=== PATIENT | female | born 1975 | race Caucasian/White ===

== ENCOUNTER 2017-06-23 22:50 | Emergency (ER) | payer SELFPAY ==
[~2017-06-23] VITALS: Ht 160 cm; Wt 96.8 kg
[2017-06-23 22:53] VITALS: TEMP 36.9; Ht 160 cm; Wt 96.8 kg
[2017-06-23] MEDS ORDERED: ALUMINUM/MAGNESIUM SUSP 30 ML UDC ONE (23:24)
[2017-06-23] MEDS ORDERED: LIDOCAINE HCL 2% VISC SOLN 20 ML UDC ONE (23:24)
[2017-06-23] MEDS ORDERED: LISI40TA PO (23:38)
[2017-06-23] MEDS ORDERED: ATOR-22 PO (23:38)
[2017-06-23] MEDS ORDERED: NTRGSL/4 UT (23:38)
[2017-06-23] MEDS ORDERED: CLOP1TAB15 PO (23:38)
[2017-06-23] MEDS ORDERED: ASPI325T45 PO (23:38)
[2017-06-23 23:43] LABS: HEMATOCRIT 37.9 % (37-47); HEMOGLOBIN 12.9 g/dL (12.0-16.0); MEAN CELL VOLUME 85.2 fL (80-100); MEAN PLATELET VOLUME 9.9 fL (7.4-10.4); PLATELET COUNT 170 K/uL (130-400); RED CELL DISTRIBUTION WIDTH CV 13.9 % (11.5-14.5); RED CELL DISTRIBUTION WIDTH SD 43.6 fL (36.4-46.3); WHITE BLOOD COUNT 7.66 K/uL (4.8-10.8)
[2017-06-23] MEDS ORDERED: ONDANSETRON INJ 2 MG/ML 2 ML VIAL IV STA (23:54)
[2017-06-24 00:03] LABS: ALBUMIN 3.3 gm/dl (3.4-5.0); ALT/SGPT 44 U/L (12-78); AST/SGOT 22 U/L (15-37); BLOOD UREA NITROGEN 9 mg/dl (7-18); CALCIUM 8.5 mg/dl (8.5-10.1); CARBON DIOXIDE 27 mmol/L (21-32); CREATININE 0.93 mg/dl (0.60-1.20); GLUCOSE 90 mg/dl (70-99); LIPASE 85 U/L (73-393); SODIUM 140 mmol/L (136-145)
[2017-06-24 00:08] LABS: ALKALINE PHOSPHATASE 92 U/L (45-117); TOTAL PROTEIN 7.1 gm/dl (6.4-8.2)
[2017-06-24 01:42] VITALS: BP 154/80; PULSE 55; O2SAT 97
--- NOTE | 2017-06-24 04:58 | EMERGENCY ROOM VISIT NOTE ---
History Report prepared by Malka: Brandie Begum Under the Supervision of: Dr. Yen Colin D.O. First contact with patient: 23:08 Chief Complaint: CHEST PAIN Stated Complaint: CHEST PAIN,SOB,SORE SHOULDERS AND BACK History of Present Illness The patient is a 41 year old female who presents to the Emergency Room with complaints of constant chest pain starting 12 hours ago. The patient states that the pain is a burning in her chest. The patient notes that this has happened before. She states that in 2011 she had a stent placed. She states that in 2014 she had a negative heart catheterization. The patient states that she has had a history of acid reflux. She reports that she took a Pepto with no relief. She states that when she took a Nitroglycerin it helped, but she vomited shortly after. She denies ever having to take it before. The patient notes that she is on Plavix and has been stressing out a lot lately. The patient complains of the pain radiating into her back and nausea. The patient denies cough, sore throat, and shortness of breath. Source of History: patient Onset: 12 hours ago Position: chest Quality: burning Timing: constant Modifying Factors (Relieving): other (Nitroglycerin) Associated Symptoms: + nausea, + vomiting, + back pain, No sorethroat, No cough, No SOB Review of Systems See HPI for pertinent positives & negatives. A total of 10 systems reviewed and were otherwise negative. Past Medical & Surgical Medical Problems: (1) Acid reflux Surgical Problems: (1) Hx of cardiac catheterization (2) S/P coronary artery stent placement Family History Patient reports no known family medical history. Social History Smoking Status: Current Every Day Smoker Marital Status: Housing Status: lives with significant other Occupation Status: employed Current/Historical Medications Scheduled Aspirin (Aspirin), 325 MG PO DAILY Atorvastatin (Lipitor), 20 MG PO DAILY Clopidogrel (Plavix), 75 MG PO DAILY Lisinopril (Zestril), 40 MG PO DAILY Scheduled PRN Nitroglycerin (Nitrostat), 0.4 MG UT UD PRN for Chest Pain Allergies Coded Allergies: No Known Allergies (Unverified , 06/23/17) Physical Exam Vital Signs Date Time Temp Pulse Resp B/P (MAP) Pulse Ox O2 Delivery O2 Flow Rate FiO2 06/24/17 01:42 55 18 154/80 97 06/24/17 00:50 57 18 161/88 96 06/24/17 00:30 42 06/23/17 23:08 66 06/23/17 22:53 36.9 82 18 165/93 100 Room Air Physical Exam HEENT: Head - normocephalic and atraumatic Pupils are equal, round, and reactive to light. Extraocular eye muscles are intact, and sclera are anicteric. Nose - moist nasal mucosa without discharge. Mouth - moist buccal mucosa. Oropharynx is nonerythematous and there is no tonsillar exudate or edema noted. Neck: Supple; no JVD, nuchal rigidity, cervical lymphadenopathy, or auscultated bruits. Heart: Regular rate and rhythm. There is a normal S1 and S2 with no murmurs, clicks, or gallops appreciated. Lungs: Clear to auscultation bilaterally with no wheezes, rales, or rhonchi. Abdomen: Soft, easily reproducible epigastric pain with palpation, nondistended , with good bowel sounds. There are no palpable pulsatile masses or hepatosplenomegaly. There is no guarding, rigidity, or rebound noted. Extremities: No evidence of cyanosis, clubbing, or edema. There are easily palpable peripheral pulses. Skin: warm and dry with good turgor and no rashes. Medical Decision & Procedures Laboratory Results 06/23/17 23:35 06/23/17 23:35 Test 06/23/17 23:35 Red Blood Count 4.45 M/uL (4.2-5.4) Mean Corpuscular Volume 85.2 fL (80-100) Mean Corpuscular Hemoglobin 29.0 pg (25-34) Mean Corpuscular Hemoglobin Concent 34.0 g/dl (32-36) RDW Standard Deviation 43.6 fL (36.4-46.3) RDW Coefficient of Variation 13.9 % (11.5-14.5) Mean Platelet Volume 9.9 fL (7.4-10.4) Anion Gap 7.0 mmol/L (3-11) Est Creatinine Clear Calc Drug Dose 87.3 ml/min Estimated GFR () 87.9 Estimated GFR (Non- 75.8 BUN/Creatinine Ratio 9.4 (10-20) Calcium Level 8.5 mg/dl (8.5-10.1) Total Bilirubin 0.2 mg/dl (0.2-1) Direct Bilirubin < 0.1 mg/dl (0-0.2) Aspartate Amino Transf (AST/SGOT) 22 U/L (15-37) Alanine Aminotransferase (ALT/SGPT) 44 U/L (12-78) Alkaline Phosphatase 92 U/L (45-117) Total Creatine Kinase 107 U/L (26-192) Creatine Kinase MB 1.0 ng/ml (0.5-3.6) Creatine Kinase MB Ratio 0.9 (0-3.0) Troponin I < 0.015 ng/ml (0-0.045) Total Protein 7.1 gm/dl (6.4-8.2) Albumin 3.3 gm/dl (3.4-5.0) Lipase 85 U/L (73-393) Laboratory results per my review. Medications Administered Medications (Trade) Dose Ordered Sig/Rob Route Start Time Stop Time Status Last Admin Dose Admin Al Hydroxide/Mg Hydroxide (Maalox Susp) 30 ml STK-MED ONCE .ROUTE 06/23/17 23:24 06/23/17 23:25 DC 06/23/17 23:26 30 ML Lidocaine HCl (Viscous Lidocaine 2% Soln) 20 ml STK-MED ONCE .ROUTE 06/23/17 23:24 06/23/17 23:25 DC 06/23/17 23:27 20 ML Ondansetron HCl (Zofran Inj) 4 mg NOW STAT IV 06/23/17 23:54 06/23/17 23:55 DC 06/24/17 00:02 4 MG Procedure 2324: Ordered GI Cocktail 50 ml PO. 2354: Ordered Zofran Inj 4 mg IV. ECG Indication: chest pain Rate (beats per minute): 73 Rhythm: normal sinus Findings: no acute ischemic change, no ectopy ED Course 2321: Past medical records reviewed. The patient was evaluated in room A10. A complete history and physical exam was performed. A twelve-lead EKG was obtained as described above. The patient was observed on the mold cleaner and pulse oximeter. She had an IV lock initiated and labs were drawn as above. 2324: Ordered GI Cocktail 50 ml PO. 2349: I reevaluated the patient and the GI cocktail helped for a brief moment, but she is now nauseated. 2354: Ordered Zofran Inj 4 mg IV. 0123: Upon reevaluation, the patient is feeling much better. I Her symptoms have resolved. discussed findings and results with her. She verbalized agreement of the treatment plan. The patient was discharged home. Medical Decision This is a 41-year-old female patient who presents to the emergency department with epigastric discomfort for the past 12 hours. Differential diagnoses include pancreatitis, aortic dissection, gastritis, cholecystitis, ulcerative disease, ACS. LABS: No leukocytosis. Stable H&H Normal renal function Normal glucose Normal LFTs Normal lipase Negative cardiac enzymes This 41-year-old female patient with a history of heart disease presents to the ER with epigastric discomfort for the past 12 hours. Throughout the day, she became more concerned that the symptoms were related to her heart. She took her nitroglycerin which only gave her brief relief of the symptoms. The patient describes the discomfort in the epigastrium as burning. The patient does have a history of GERD for which she takes Zantac. EKG was unremarkable and cardiac enzymes were negative. The patient's symptoms were relieved with a GI cocktail. The patient had a cardiac catheterization which was clean just 2 years ago. I do not suspect that this is cardiac in origin. The pain is actually not in the chest but in the epigastrium and is easily reproducible. She was encouraged to follow-up with her PCP if symptoms persist. Otherwise, she should take her Zantac twice a day for the next 5 days and then back to her usual dosage. Medication Reconcilliation Current Medication List: was personally reviewed by me Blood Pressure Screening Patient's blood pressure: Elevated blood pressure Blood pressure disposition: Referred to PCP Impression Primary Impression: Epigastric pain Scribe Attestation The scribe's documentation has been prepared under my direction and personally reviewed by me in its entirety. I confirm that the note above accurately reflects all work, treatment, procedures, and medical decision making performed by me. Departure Information Dispostion Home / Self-Care Referrals No Doctor, Assigned (PCP) Forms Call Back Authorization, HOME CARE DOCUMENTATION FORM, IMPORTANT VISIT INFORMATION Patient Instructions My [facility] Additional Instructions Rest Limit stress and anxiety. Take zantac twice a day for next 5 days Follow up with PCP in next 48 hours if symptoms persist
== END 2017-06-24 01:42 | disposition home or self-care (01) ==
LOC: C.EDB 22:54 → C.EDA 06-24 01:42
DX: R10.13 Epigastric pain (principal); F17.200 Nicotine dependence, unspecified, uncomplicated; Z98.61 Coronary angioplasty status; Z98.890 Other specified postprocedural states; Z79.02 Long term (current) use of antithrombotics/antiplatelets; Z79.82 Long term (current) use of aspirin